=== PATIENT | female | born 1980 | race Caucasian/White ===

== ENCOUNTER → 2020-04-04 | Outpatient (CLI) | payer OTHER ==
[~2020-04-04] MED LIST: COVID-19 VACC, MRNA(MODERNA)/PF 100 MCG/0.5 ML VIAL IM ONE
== END ==
LOC: VACCPMC 11:53
DX: Z23 Encounter for immunization (principal); Z20.828 Contact with and (suspected) exposure to other viral communicable diseases

== ENCOUNTER → 2020-05-14 | Outpatient (CLI) | payer OTHER | END | DRG 951 | LOC: VACCPMC 09:07 | DX: Z23 Encounter for immunization (principal); Z20.822 Contact with and (suspected) exposure to COVID-19 | CPT/HCPCS: 0012A; 91301 ==

== ENCOUNTER 2021-08-25 21:28 | Emergency (ER) | payer BC ==
[~2021-08-25] VITALS: Ht 154.9 cm; Wt 80.7 kg
[2021-08-25] MEDS ORDERED: OSELTAMIVIR PHOSPHATE 75 MG CAP PO STA (21:35)
[2021-08-25] MEDS ORDERED: XOFLUZA80 MG PO (21:51)
[2021-08-25] MEDS ORDERED: PROMETHAZINE HC25 M1 PO (21:51)
[2021-08-25 23:17] VITALS: BP 108/70
== END 2021-08-25 23:22 | disposition home or self-care (01) ==
LOC: ER 21:36
DX: J10.1 Influenza due to other identified influenza virus with other respiratory manifestations (principal); R11.2 Nausea with vomiting, unspecified; D64.9 Anemia, unspecified; Z20.822 Contact with and (suspected) exposure to COVID-19
CPT/HCPCS: 99283; U0002